=== PATIENT | male | born 1970 | race Two or more races ===

== ENCOUNTER 2021-09-08 08:00 | Outpatient (CLI) | payer BC | END 2021-09-08 08:30 | disposition home or self-care (01) | LOC: PPH VACUNA 08:00 | PROVIDERS: ATTEND Emergency Medicine Pediatric Emergency Medicine | DX: Z23 Encounter for immunization (principal) ==

== ENCOUNTER 2022-04-19 13:16 | Outpatient (CLI) | payer BC | END 2022-04-19 13:26 | disposition home or self-care (01) | LOC: PPH VACUNA 13:16 | PROVIDERS: ATTEND Emergency Medicine Pediatric Emergency Medicine | DX: Z23 Encounter for immunization (principal) ==